=== PATIENT | female | born 1955 | race Caucasian/White ===

== ENCOUNTER 2019-08-26 17:00 | Emergency (ER) | payer OTHER, SELFPAY ==
--- NOTE | 2019-08-26 17:06 | ED.GENADULT ---
HPI - General Adult General Chief complaint: Skin/Abscess/Foreign Body Stated complaint: rash on face and arms Time Seen by Provider: 08/26/19 17:43 Source: patient Mode of arrival: ambulatory Limitations: no limitations History of Present Illness HPI narrative: 64-year-old female patient presents to the [facility] with complaints of rash to the left thigh, left side of face, neck and bilateral forearms. Patient states that she was in the yard over the weekend doing yard work and thinks she came in contact with poison beth. Patient states she has been using some [id number] anti-itch ointment along with some Benadryl for her reaction. Denies any chest pain, shortness of breath, swelling of the lips tongue or face. Patient denies any abdominal pain, nausea, vomiting or diarrhea. Related Data Allergies Allergy/AdvReac Type Severity Reaction Status Date / Time No Known Allergies Allergy Verified 08/26/19 17:22 Review of Systems Review of Systems: Narrative: CONSTITUTIONAL: Denies fever, chills, or sweats. EYES: Denies visual changes, redness, or discharge. ENT: Denies rhinorrhea, congestion, sore throat, or otalgia. CARDIOVASCULAR: Denies chest pain, palpitations, or edema. RESPIRATORY: Denies cough or dyspnea. GASTROINTESTINAL: Denies abdominal pain, nausea, vomiting, or diarrhea. GENITOURINARY: Denies dysuria or hematuria. SKIN: Positive rash with itching to face, neck and forearms. MUSCULOSKELETAL: Denies back pain, joint pain, or myalgia. NEUROLOGIC: Denies headache, numbness, or weakness. PSYCHIATRIC: Denies anxiety or depression. PMFSH Comments At the time of my signature I agree with nursing past medical history, surgical, social, and family history. There is no relevant family history pertinent to the presenting complaint. Exam Narrative: Exam Narrative: GENERAL: Well-appearing, well-nourished, and in no acute distress. HEAD: Normocephalic, atraumatic. EYES: PERRLA and EOMI. ENT: Nares clear, no rhinorrhea or epistaxis. Mucous membranes moist. NECK: Supple. No lymphadenopathy CHEST: Clear to auscultation. No respiratory distress. HEART: Regular rate and rhythm. No murmur heard. Normal peripheral pulses. ABDOMEN: Soft, nontender, nondistended, normal active bowel sounds. EXTREMITIES: Normal range of motion. No edema. SKIN: Patient has some swelling and erythema around the left eye but no eyeball involvement. Patient does have generalized redness over the left cheek that extends down to the left arm. Patient does have some raised areas with some pustules noted to the left wrist and right forearm as well as some red small flat erythemic areas to the right forearm. NEURO: No focal deficits. Alert and oriented x3. Course Vital Signs Vital signs: Vital Signs Temperature 36.7 C 08/26/19 17:12 Pulse Rate 70 08/26/19 17:12 Respiratory Rate 20 08/26/19 17:12 Blood Pressure 138/68 08/26/19 17:12 Pulse Oximetry 95 08/26/19 17:12 Temperature 36.7 C 08/26/19 17:12 Pulse Rate 70 08/26/19 17:12 Respiratory Rate 20 08/26/19 17:12 Blood Pressure 138/68 08/26/19 17:12 Pulse Oximetry 95 08/26/19 17:12 Vital signs reviewed. The patient has been informed that they may have pre-hypertension or Hypertension based on a BP reading in the department. I recommend that the patient call the primary care provider listed on their discharge instructions or a physician of their choice this week to arrange follow up for further evaluation of possible pre-hypertension or Hypertension Medical Decision Making Differential Diagnosis Differential Diagnosis: Differential diagnosis: Contact dermatitis, poison beth, poison [place]ac, psoriasis, eczema, allergic reaction, drug reaction, scabies, tinea syphilis, lung disease, viral exanthema, pityriasis, erythema multiforme. Discussed with patient this is most likely poison beth contact dermatitis. Discussed with her that we will discharge her home with some steroids fo
[2019-08-26 17:12] VITALS: BP 138/68; PULSE 70; RESP 20; TEMP 36.7; O2SAT 95
== END 2019-08-26 17:50 | disposition home or self-care (01) ==
PROVIDERS: Emergency Provider Nurse Practitioner Family
DX: L23.7 Allergic contact dermatitis due to plants, except food (principal); E78.00 Pure hypercholesterolemia, unspecified
CPT/HCPCS: 99213; G0463